=== PATIENT | female | born 1950 ===

== ENCOUNTER → 2021-06-28 10:51 | Outpatient (CLI) | payer MEDICARE, OTHER, SELFPAY ==
[2021-06-28 19:32] LABS: Blood Urea Nitrogen 20 mg/dL (7-17); Calcium 10.1 mg/dL (8.4-10.2); Carbon Dioxide 36 mmol/L (22-32); Chloride 96 mmol/L (98-107); Cholesterol 234 mg/dL (140-199); Estimated Glomerular Filt Rate 51.4 mL/min (>60); Glucose 154 mg/dL (80-110); HEMOLYSIS < 15 (0-50); Potassium 4.4 mmol/L (3.4-5.1); Sodium 139 mmol/L (137-145); Triglycerides 110 mg/dL (35-150)
[2021-06-28 19:43] LABS: HDL Cholesterol 200 mg/dL (40-60); LDL Cholesterol Calculated 12 mg/dL (<100)
[2021-06-28 19:54] LABS: Creatinine Urine Random 78.2 mg/dL
[2021-06-28 19:59] LABS: Microalbumin Urine Random 13.3 mg/dL (0-1.6)
[2021-06-28 20:02] LABS: Thyroid Stimulating Hormone 18.5 uIU/mL (0.47-4.68)
== END ==
DX: E11.42 Type 2 diabetes mellitus with diabetic polyneuropathy (principal); Z79.899 Other long term (current) drug therapy; I10 Essential (primary) hypertension
CPT/HCPCS: 80048; 80061; 82043; 82570; 83036; 84443

== ENCOUNTER → 2021-07-12 13:10 | Outpatient (CLI) | payer MEDICARE, OTHER, SELFPAY ==
[2021-07-12 18:46] LABS: Add Manual Diff / Slide Review NO; Basophils Absolute Auto 100 /uL (0-100); Basophils Percent Auto 1.4 % (0-2); Eosinophils Absolute Auto 100 /uL (0-450); Eosinophils Percent Auto 2.6 % (2-4); Hematocrit 42.9 % (36-46); Hemoglobin 14.4 g/dL (12.0-16.0); Lymphocytes Absolute Auto 900 /uL (1100-4500); Lymphocytes Percent Auto 24.1 % (25-40); Mean Corpuscular HGB Conc 33.5 % (30-36); Mean Corpuscular Hemoglobin 31.9 PG (26-34); Mean Corpuscular Volume 95.2 fL (80-100); Monocytes Absolute Auto 500 /uL (0-900); Monocytes Percent Auto 11.5 % (3-14); Neutrophils Absolute Auto 2400 /uL (1500-7000); Neutrophils Percent Auto 60.4 % (50-75); Platelet Count 194 X10^3/uL (150-400); Red Cell Distribution Width 14.8 % (11.6-14.8); White Blood Cell Count 3.9 X10^3/uL (4.5-11.0)
[2021-07-12 20:19] LABS: Alanine Aminotransferase 38 IU/L (<35); Albumin 4.3 g/dL (3.5-5.0); Albumin Globulin Ratio 1.4 (1.0-2.8); Alkaline Phosphatase 99 U/L (38-126); Aspartate Aminotransferase 62 IU/L (14-36); BUN Creatinine Ratio 20.2 (6-22); Blood Urea Nitrogen 21 mg/dL (7-17); Calcium 9.4 mg/dL (8.4-10.2); Carbon Dioxide 31 mmol/L (22-32); Chloride 90 mmol/L (98-107); Estimated Glomerular Filt Rate 51.9 mL/min (>60); Glucose 134 mg/dL (80-110); HEMOLYSIS < 15 (0-50); Potassium 4.3 mmol/L (3.4-5.1); Sodium 130 mmol/L (137-145); Total Protein 7.3 g/dL (6.3-8.2)
[2021-07-12 20:28] LABS: NT-proBNP (BNP-Adult 18+) 233 pg/mL (<125)
[2021-07-12 20:36] LABS: Free T4, Direct Thyroxine 1.06 ng/dL (0.78-2.19)
== END ==
PROVIDERS: PCP Physician Assistant; Visit Provider Physician Assistant
DX: R06.02 Shortness of breath (principal); R60.0 Localized edema; F10.19 Alcohol abuse with unspecified alcohol-induced disorder
CPT/HCPCS: 80053; 83880; 84439; 85025

== ENCOUNTER → 2021-07-21 13:13 | Outpatient (CLI) | payer MEDICARE, OTHER, SELFPAY ==
[2021-07-21 19:45] LABS: BUN Creatinine Ratio 16.4 (6-22); Blood Urea Nitrogen 18 mg/dL (7-17); Calcium 9.6 mg/dL (8.4-10.2); Carbon Dioxide 39 mmol/L (22-32); Chloride 92 mmol/L (98-107); Estimated Glomerular Filt Rate 48.7 mL/min (>60); Glucose 146 mg/dL (80-110); HEMOLYSIS < 15 (0-50); Potassium 4.1 mmol/L (3.4-5.1); Sodium 135 mmol/L (137-145)
[2021-07-25 18:25] LABS: Osmolality, Serum 294 mOsmol/kg (280-301)
== END ==
PROVIDERS: PCP Physician Assistant; Visit Provider Physician Assistant
DX: E87.1 Hypo-osmolality and hyponatremia (principal)
CPT/HCPCS: 80048; 83930